=== PATIENT | male | born 1985 | race Caucasian/White ===

== ENCOUNTER 2018-07-15 17:14 | Emergency (ER) | payer MEDICAID ==
[~2018-07-15] VITALS: Ht 175.3 cm; Wt 75.0 kg
[~2018-07-15 17:14] MED LIST: NO HOME MEDS
[2018-07-15 17:16] VITALS: BP 145/87
== END 2018-07-15 19:12 | disposition home or self-care (01) ==
LOC: ER 17:15
DX: S50.312A Abrasion of left elbow, initial encounter (principal); S89.92XA Unspecified injury of left lower leg, initial encounter; M25.562 Pain in left knee; V29.9XXA Motorcycle rider (driver) (passenger) injured in unspecified traffic accident, initial encounter; Y93.89 Activity, other specified; Y92.488 Other paved roadways as the place of occurrence of the external cause; Y99.8 Other external cause status
CPT/HCPCS: 29505; 73564; 99283

== ENCOUNTER 2018-07-26 10:34 | Outpatient (CLI) | payer MEDICAID ==
[2018-07-26 10:23] VITALS: BP 139/99
== END 2018-07-26 11:08 | disposition home or self-care (01) ==
LOC: ORTHO 10:34
PROVIDERS: ATTEND Nurse Practitioner Family
DX: S83.512A Sprain of anterior cruciate ligament of left knee, initial encounter (principal); X58.XXXA Exposure to other specified factors, initial encounter; Y93.89 Activity, other specified; Y92.89 Other specified places as the place of occurrence of the external cause; Y99.8 Other external cause status
CPT/HCPCS: 99213

== ENCOUNTER 2018-08-25 08:25 | Outpatient (CLI) | payer MEDICAID | END 2018-08-25 23:59 | disposition home or self-care (01) | LOC: RAD 08:25 | PROVIDERS: ATTEND Nurse Practitioner Family | DX: S83.512D Sprain of anterior cruciate ligament of left knee, subsequent encounter (principal); S80.02XD Contusion of left knee, subsequent encounter; M94.262 Chondromalacia, left knee; M25.462 Effusion, left knee; X58.XXXD Exposure to other specified factors, subsequent encounter | CPT/HCPCS: 73721 ==

== ENCOUNTER 2018-12-27 15:02 | Emergency (ER) | payer MEDICAID ==
[~2018-12-27] VITALS: Ht 175.3 cm; Wt 75.0 kg
[2018-12-27 15:13] VITALS: BP 142/97
[2018-12-27] MEDS ORDERED: ketorolac tromethamine 15mg/ml inj. IM ONE (15:55)
[2018-12-27] MEDS ORDERED: NAPR-56 PO (15:56)
[2018-12-27] MEDS ORDERED: METH-360 PO (15:56)
== END 2018-12-27 16:14 | disposition home or self-care (01) ==
LOC: ER 15:02
DX: S29.012A Strain of muscle and tendon of back wall of thorax, initial encounter (principal); M25.519 Pain in unspecified shoulder; F10.99 Alcohol use, unspecified with unspecified alcohol-induced disorder; Z56.0 Unemployment, unspecified; Z79.899 Other long term (current) drug therapy; V87.7XXA Person injured in collision between other specified motor vehicles (traffic), initial encounter; Y93.89 Activity, other specified; Y92.488 Other paved roadways as the place of occurrence of the external cause; Y99.8 Other external cause status; Y90.9 Presence of alcohol in blood, level not specified
CPT/HCPCS: 99283; J1885

== ENCOUNTER 2019-05-29 15:07 | Emergency (ER) | payer MEDICAID ==
[~2019-05-29] VITALS: Ht 177.8 cm; Wt 75.0 kg
[~2019-05-29 15:07] MED LIST changes: +METH-360 PO
[2019-05-29 15:08] VITALS: BP 162/138
[2019-05-29] MEDS ORDERED: LIDOcaine 1% W/epiNEPHrine 1:200,000 10ml vial IJ ONE (15:35)
[2019-05-29] MEDS ORDERED: CEPH250T PO (15:45)
[2019-05-29] MEDS ORDERED: DOXY100C43 PO (15:45)
== END 2019-05-29 16:37 | disposition home or self-care (01) ==
LOC: ER 15:07
DX: L72.0 Epidermal cyst (principal); Z56.0 Unemployment, unspecified
CPT/HCPCS: 10060; 99283

== ENCOUNTER 2020-02-25 07:58 | Emergency (ER) | payer MEDICAID ==
[~2020-02-25] VITALS: Ht 175.3 cm; Wt 77.0 kg
[2020-02-25] MEDS ORDERED: SULF1TAB49 PO (09:10)
[2020-02-25 09:18] VITALS: BP 127/91
== END 2020-02-25 09:15 | disposition home or self-care (01) ==
LOC: ER 08:00
DX: L02.214 Cutaneous abscess of groin (principal); Z72.89 Other problems related to lifestyle; Z56.0 Unemployment, unspecified; Z79.899 Other long term (current) drug therapy
CPT/HCPCS: 10060; 99283

== ENCOUNTER 2023-07-19 12:52 | Emergency (ER) | payer MEDICAID ==
[~2023-07-19] VITALS: Ht 175.3 cm; Wt 84.1 kg
[2023-07-19 13:15] VITALS: TEMP 97.2
[2023-07-19] MEDS: dexamethasone sod phosphate 10mg/ml inj IM STA (15:23)
[2023-07-19] MEDS: cyclobenzaprine 10mg tablet PO ONE (15:23)
[2023-07-19] MEDS: HYDROcodone/acetaminophen 5mg/325mg tablet PO ONE (15:23)
[2023-07-19] MEDS: ketorolac trometh inj. 60 MG/2 ML VIAL IM ONE (15:24)
[2023-07-19 16:41] VITALS: BP 145/91; PULSE 66; RESP 16; O2SAT 98
[2023-07-19] MEDS ORDERED: CYCL-1 PO (16:41)
[2023-07-19] MEDS ORDERED: LIDO700A32 TOP (16:41)
== END 2023-07-19 16:57 | disposition home or self-care (01) ==
LOC: ER 12:52
DX: S16.1XXA Strain of muscle, fascia and tendon at neck level, initial encounter (principal); X58.XXXA Exposure to other specified factors, initial encounter; Y93.89 Activity, other specified; Y92.89 Other specified places as the place of occurrence of the external cause; Y99.8 Other external cause status
CPT/HCPCS: 72100; 96372; 99284; J1100; J1885

== ENCOUNTER 2023-10-27 14:31 | Emergency (ER) | payer MEDICAID ==
[~2023-10-27] VITALS: Ht 175.3 cm; Wt 81.0 kg
[~2023-10-27 14:31] MED LIST changes: +CYCL-1 PO; +LIDO700A32 TOP
[2023-10-27 14:45] VITALS: BP 122/91; PULSE 82; O2SAT 96
[2023-10-27] MEDS ORDERED: proparacaine 0.5% ophthalmic drops 15ml EACHEYE ONE (17:20)
[2023-10-27] MEDS: proparacaine 0.5% ophthalmic drops 15ml EACHEYE ONE (17:24)
[2023-10-27 17:30] VITALS: RESP 17; TEMP 98.3
[2023-10-27] MEDS ORDERED: POLOS LEFTEYE (17:31)
== END 2023-10-27 17:35 | disposition home or self-care (01) ==
LOC: ER 14:31
DX: T15.12XA Foreign body in conjunctival sac, left eye, initial encounter (principal); Z79.899 Other long term (current) drug therapy; W44.8XXA Other foreign body entering into or through a natural orifice, initial encounter; Y93.89 Activity, other specified; Y92.89 Other specified places as the place of occurrence of the external cause; Y99.8 Other external cause status
CPT/HCPCS: 65205; 99284

== ENCOUNTER 2024-02-20 07:52 | Emergency (ER) | payer MEDICAID ==
[~2024-02-20] VITALS: Ht 175.3 cm; Wt 80.0 kg
[2024-02-20] MEDS ORDERED: METH-798 PO (09:49)
[2024-02-20] MEDS: ketorolac trometh 30MG/ML vial 30 MG/ML VIAL IM STA (09:57)
[2024-02-20 10:10] VITALS: BP 128/84; PULSE 69; RESP 15; TEMP 97.8; O2SAT 97
== END 2024-02-20 10:15 | disposition home or self-care (01) ==
LOC: ER 07:52
DX: M54.50 Low back pain, unspecified (principal); G89.29 Other chronic pain; M54.9 Dorsalgia, unspecified; Z79.899 Other long term (current) drug therapy; Z72.89 Other problems related to lifestyle; Z56.0 Unemployment, unspecified
CPT/HCPCS: 96372; 99283; J1885

== ENCOUNTER 2025-01-13 16:37 | Emergency (ER) | payer MEDICAID ==
[~2025-01-13] VITALS: Ht 175.3 cm; Wt 78.7 kg
[~2025-01-13 16:37] MED LIST changes: +LIDO-52 TOP; -LIDO700A32 TOP; +METH-798 PO
--- NOTE | 2025-01-13 17:12 | Physician Documentation ---
History of Present Illness ~ Chief Complaint: Syncope Stated Complaint: DIZZINESS Time Seen by MD: 17:59 OK to notify your PCP?: Yes Primary Medical Doctor: ena Source: patient Mode of Arrival: POV Exam Limitations: no limitations HPI 39-year-old male presents for episode of syncope and slurred speech yesterday approximately 1:30 p.m. He went to [facility] urgent care today who stated it might be a possible TIA and to come here. He has been completely asymptomatic today. He has not experienced any similar symptoms in the past. The patient reports the sensation that his vision greyed out and that he felt like he was going to pass out. He denies any focal neurologic deficits, N/V/D, chest pain, cough, cold/flu symptoms and has been largely asymptomatic since that time. Medication Reconciliation Allergies: Coded Allergies: No Known Allergies (Unverified , 07/19/23) Scheduled Cyclobenzaprine* (Cyclobenzaprine*), 1 TAB PO HS Lidocaine (Lidoderm), 1 PATCH TOP DAILY Methocarbamol (Robaxin-750), 1 TAB PO HS Methocarbamol (Methocarbamol), 1 TAB PO Q8H Miscellaneous Medications Home Med List (No Home Medications), (Reported) Past Medical History Past Medical History: Chronic Back Pain Past Surgical History: no surgical history Alcohol Use: Occasionally Drug Use: none Lives with: Family Lives In: Home Occupation: unemployed Review of Systems All Other Systems at this time: Reviewed and Negative Physical Exam Vital Signs: RN Vital Signs have been reviewed: Yes, Temperature: 98.1, Source: Temporal, Heart Rate: 72, Respiratory Rate: 16, BP: 142/79, Pulse Oximetry: 99, Weight: 78.700 Oxygen Flow Rate: 0 Pulse Oximetry Reflects: adequate oxygenation Physical Exam General: Alert, no distress. HEENT: No injection, moist mucous membranes. Neck: Full range of motion. Respiratory: No respiratory distress, equal chest rise and fall. Chest: No accessory muscle use. Cardiovascular: Regular rate and rhythm. Gastrointestinal: Nondistended. Extremities: Normal range of motion, no deformity. Neurologic: Oriented x4. Psychiatric: Normal mood and affect. Skin: Normal color, warm and dry. Progress Results/Orders Results/Orders Vital Signs 01/13/25 01/13/25 01/13/25 01/13/25 16:48 17:27 17:53 18:34 Temp 98.1 98.1 98.1 Pulse 72 60 60 Resp 16 15 14 B/P (MAP) 142/79 124/75 (91) 126/76 (93) Pulse Ox 99 97 98 O2 Flow Rate 0 0 0 01/13/25 18:34 B/P (MAP) Laboratory Tests Test 01/13/25 17:20 01/13/25 17:46 White Blood Count 5.7 Red Blood Count 5.22 Hemoglobin 16.4 Hematocrit 47.1 Mean Corpuscular Volume 90.3 Mean Corpuscular Hemoglobin 31.5 H Mean Corpuscular Hemoglobin Concent 34.8 Red Cell Distribution Width 13.7 Platelet Count 260 Mean Platelet Volume 7.0 L Neutrophils (%) (Auto) 64.4 Lymphocytes (%) (Auto) 24.9 Monocytes (%) (Auto) 7.3 Eosinophils (%) (Auto) 2.1 Basophils (%) (Auto) 1.3 H Neutrophils # (Auto) 3.6 Lymphocytes # (Auto) 1.4 Monocytes # (Auto) 0.4 Eosinophils # (Auto) 0.1 Basophils # (Auto) 0.1 CBC Comment Sodium Level 140 Potassium Level 3.7 Chloride Level 104 Carbon Dioxide Level 30.7 Anion Gap 5 L Blood Urea Nitrogen 14 Creatinine 0.93 Estimated GFR/1.73 m2 90 BUN/Creatinine Ratio 15.1 Glucose Level 95 Calcium Level 8.7 Magnesium Level 2.3 Albumin 4.2 Chemistry Comments Ethyl Alcohol Level < 10 Urine Opiates Screen Negative Urine Methadone Screen Negative Urine Fentanyl Screen Negative Urine Barbiturates Screen Negative Urine Phencyclidine Screen Negative Urine Amphetamines Screen Negative Urine Benzodiazepines Screen Negative Urine Cocaine Screen Negative Urine Cannabinoids Screen Negative Drug Screen Comment Medical Decision Making Findings 39 year old male with an episode of what sounds like near-syncope. His workup was entirely negative including CBC/CMP/CXR/EKG and UA with no obvious etiology. EKG interpreted by me demonstrated NSR at 67/min with a nonspecific intraventricular conduction delay and no dysrthymia noted. CXR interpreted by me demonstrated normal contours, no cardiomegaly, no PTX/PNA, no acute. Counseled him that I recommend follow up with PCP or return for standard precautions. No dysrhythmia noted on telemonitor during his stay today. Differential Dx:Considerations: Include: anemia, CVA, dehydration, dysrhythmia, electrolyte disorder, encephalopathy, hypoglycemia, hypovolemia, myocardial infarction, vasovagal Departure Disposition: 01 HOME / SELF CARE / HOMELESS Impression: Primary Impression: Syncope, near Condition: Stable Discharge Instructions: Near-Syncope Referrals: NO PRIMARY CARE PROVIDER (PCP) Education Educated: Patient Educated regarding: diagnosis, treatment, prognosis, need for follow up Additional Comment Medical Screen Exam This patient recieved a medical screening examination. After reviewing the individual's medical complaints with presenting symptoms and performing an appropriate physical examination, it was determined that no immediate life- threatening emergency medical condition is present. This individual is also not a women having contractions. Signature Scribe Signature: . Attestation: . TRE RUBALCAVA Jan 13, 2025 17:12 BERNICE DALLAS MD Jan 13, 2025 18:57
--- NOTE | 2025-01-13 17:21 | ELECTROCARDIOGRAPH REPORT ---
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 Alyx Bonilla Measurements Intervals [place] Rate: 67 P: 23 PA: 181 QRS: -36 QRSD: 124 T: 17 QT: 405 QTc: 428 Interpretive Statements Sinus rhythm IVCD, consider atypical RBBB Electronically Signed On 01-13-2025 17:54:[address] Alyx Bonilla Please click the below link to view image of tracing.
[2025-01-13 17:30] LABS: MEAN PLATELET VOLUME 7.0 FL (7.4-10.4); RED CELL DISTRIBUTION WIDTH 13.7 % (11.5-14.5)
[2025-01-13 17:39] LABS: CREATININE 0.93 MG/DL (0.60-1.10); ETHANOL < 10 MG/DL (<10); TOTAL CARBON DIOXIDE 30.7 MMOL/L (24-32); eCRCL 107 ML/MIN; eGFR 90 ML/MIN
--- NOTE | 2025-01-13 17:56 | RADIOLOGY REPORT ---
CHEST RADIOGRAPH REASON FOR EXAM: Chest pain COMPARISON: None TECHNIQUE: One view of the chest is provided FINDINGS: The cardiomediastinal silhouette is within normal limits for technique. There is no focal a irspace disease. There is no significant pleural effusion. No acute bony abnormality is identified. IMPRESSION: No radiographic evidence of acute cardiopulmonary process.
[2025-01-13 18:19] LABS: URINE AMPHETAMINE SCREEN NEGATIVE (Neg); URINE BARBITUATE SCREEN NEGATIVE (Neg); URINE BENZODIAZEPINES SCREEN NEGATIVE (Neg); URINE CANNABINOID SCREEN NEGATIVE (Neg); URINE COCAINE SCREEN NEGATIVE (Neg); URINE METHADONE SCREEN NEGATIVE (Neg); URINE OPIATE SCREEN NEGATIVE (Neg); URINE PHENCYCLIDINE SCREEN NEGATIVE (Neg)
[2025-01-13 19:27] VITALS: BP 119/86; PULSE 87; RESP 18; TEMP 98.1; O2SAT 100
== END 2025-01-13 19:40 | disposition home or self-care (01) ==
LOC: ER 16:37
DX: R55 Syncope and collapse (principal); Z79.899 Other long term (current) drug therapy; Z72.89 Other problems related to lifestyle; Z56.0 Unemployment, unspecified
CPT/HCPCS: 36415; 71045; 80048; 80305; 80320; 83735; 85025; 93005; 99285